=== PATIENT | female | born 1955 | race Caucasian/White ===

== ENCOUNTER → 2016-12-27 | Outpatient (CLI) | payer OTHER ==
[2014-12-10 11:06] VITALS: BP 97/52
[~2016-12-27] MED LIST: CALCIUM; CLON1TAB3 PO; DICY10CA53 PO; ESOM20CA30 PO; ESTR0.62 PO; GABA-586 PO; HYDR4TAB45 PO; LEVO200T5 PO; MAGN400C PO; MECL12.52 PO; MELO7.5T5 PO; MORP30TA83 PO; MOTILIUM PO; MULT1TAB52 PO; TOPI200T25 PO; VITAMIN B6 PO
--- NOTE | 2016-12-27 14:11 | RAD ---
Chest, 2 views, 12/27/2016: History: Fever, shortness of breath, productive cough The heart size and poorly vascularity are normal. The lungs are clear. There is no evidence of pleural fluid. IMPRESSION: No acute cardiopulmonary abnormality is detected.
== END | disposition home or self-care (01) ==
LOC: DXRADRC 13:58
PROVIDERS: ATTEND Nurse Practitioner Family
DX: R50.9 Fever, unspecified (principal); R06.02 Shortness of breath; R19.7 Diarrhea, unspecified; R11.0 Nausea; R05 Cough
CPT/HCPCS: 71020

== ENCOUNTER → 2017-12-01 | Outpatient (CLI) | payer OTHER ==
[2014-12-10 11:06] VITALS: BP 97/52
[~2017-12-01] MED LIST changes: -CLON1TAB3 PO; +CLON1TAB4 PO
--- NOTE | 2017-12-01 13:21 | RAD ---
History: Constipation. Abdominal pain. Comparison: None. Findings: Suture material can be seen in the left side of the abdomen. Gas is seen in the colon. Cholecystectomy clips are present. There is a gas-filled loop of bowel in the left side the abdomen measuring up to 6 cm in diameter. This could represent a normal diameter colon or dilated small bowel loop, although possibly small bowel loop could be compensatory given suture material in the vicinity. There is a radiodensity in the left side of the abdomen projecting at the L3 level, could be nephrolith versus ingested material versus soft tissue calcification. An additional density is seen in left upper quadrant which is favored to be ingested pill. Impression: 1. Gas filled loop of bowel seen in left side the abdomen measuring about 6 cm in diameter. This could represent normal caliber colon versus dilated small bowel loop, although it is unknown if this is compensatory given the evidence of previous abdominal surgery. 2. Calcification in left side of the abdomen, could be nephrolith versus ingested material versus soft tissue calcification. Electronically signed by: Bob Lindsay MD (12/01/2017 1:18 PM) [place] [id number]
== END | disposition home or self-care (01) ==
LOC: RAD 12:56
PROVIDERS: ATTEND Internal Medicine Gastroenterology
DX: K59.00 Constipation, unspecified (principal); Z88.2 Allergy status to sulfonamides
CPT/HCPCS: 74018

== ENCOUNTER → 2020-08-22 | Outpatient (CLI) | payer MEDICARE, OTHER ==
[2014-12-10 11:06] VITALS: BP 97/52
[~2020-08-22] MED LIST changes: +CLON1TAB11 PO; -CLON1TAB4 PO; -MECL12.52 PO; +MECL12.582 PO; +MULT-445 PO; -MULT1TAB52 PO
--- NOTE | 2020-08-22 16:23 | RAD ---
Chest, PA and Lateral: Technique: PA and lateral views of the chest were obtained. History: Shortness of breath, weakness. Comparison: None. Findings: The cardiomediastinal silhouette grossly appears unremarkable. Mild left lung base atelectasis or inf iltrate. IMPRESSION: Mild left lung base atelectasis or infiltrate. Follow-up to resolution. Electronically signed by: Braulio Alvarez MD (08/22/2020 4:20 PM) [id number]
== END ==
LOC: RAD 11:51
PROVIDERS: ATTEND Physician Assistant
DX: R05 Cough (principal); R06.02 Shortness of breath
CPT/HCPCS: 71046